=== PATIENT | male | born 1970 | race Caucasian/White ===

== ENCOUNTER 2020-06-16 08:32 | Inpatient (IN) | payer BC ==
[~2020-06-16] VITALS: Ht 175.3 cm; Wt 88.0 kg
[2020-06-16] MEDS ORDERED: LOSA50 PO (08:50)
[2020-06-16] MEDS ORDERED: TOPROL XL50 MG PO (08:50)
[2020-06-16] MEDS ORDERED: HYDCHL25 PO (08:50)
[2020-06-16] MEDS ORDERED: OMEP20ER PO (08:51)
[2020-06-16 09:27] LABS: BASOPHILS ABSOLUTE AUTO 0.06 K/mm3 (0.00-0.23); BASOPHILS PERCENT AUTO 0 % (0-2); EOSINOPHILS ABSOLUTE AUTO 0.12 K/mm3 (0.00-0.68); EOSINOPHILS PERCENT AUTO 1 % (0-6); Hematocrit 42.3 % (37.0-53.0); Hemoglobin 14.7 g/dL (13.5-17.5); IMMATURE GRAN ABSOLUTE AUTO 0.07 K/mm3 (0.00-0.10); IMMATURE GRAN PERCENT AUTO 0 % (0-1); LYMPHOCYTES ABSOLUTE AUTO 2.24 K/mm3 (0.84-5.20); LYMPHOCYTES PERCENT AUTO 14 % (21-46); MONOCYTES ABSOLUTE AUTO 1.84 K/mm3 (0.16-1.47); MONOCYTES PERCENT AUTO 11 % (4-13); Mean Corpuscular HGB 31.6 pg (26.0-34.0); Mean Corpuscular HGB Conc 34.8 g/dL (31.5-36.5); Mean Corpuscular Volume 91 fL (80-100); Mean Platelet Volume 10.4 fL (9.1-12.4); NEUTROPHILS ABSOLUTE AUTO 11.95 K/mm3 (1.96-9.15); NEUTROPHILS PERCENT AUTO 73 % (41-73); Platelet Count 314 K/mm3 (150-400); RDW Coefficient Variation 11.7 % (11.7-14.2); RDW Standard Deviation 38.8 fL (35.1-46.3); Red Blood Cell Count 4.65 M/mm3 (4.30-5.90); White Blood Cell Count 16.28 K/mm3 (4.00-11.30)
[2020-06-16 10:00] LABS: Source, Urine Clean Catch
[2020-06-16 10:00] LABS: Alanine Aminotransfer (ALT/SGP 36 U/L (12-78); Albumin/Globulin Ratio 0.6 (0.8-1.8); Alk Phos 99 U/L (50-136); Anion Gap 4 mmol/L (6-16); Aspartate Aminotrans (AST/SGOT 25 U/L (12-37); Bilirubin, Total 0.7 mg/dL (0.1-1.0); Blood Urea Nitrogen 14 mg/dL (8-24); Bun/Creatinine Ratio 15.8 (12.0-20.0); CO2, Blood 35 mmol/L (21-32); Calcium, Blood 9.2 mg/dL (8.5-10.1); Chloride, Blood 102 mmol/L (98-108); Creatinine, Blood 0.89 mg/dL (0.60-1.20); Globulin, Blood 4.9 g/dL (2.2-4.0); Glomerular Filtration Rate >60 (60-); Glucose, Blood 116 mg/dL (70-99); Potassium, Blood 3.1 mmol/L (3.5-5.5); Sodium, Blood 141 mmol/L (136-145); Total Protein, Blood 7.9 g/dL (6.4-8.2)
[2020-06-16 10:10] LABS: Appearance, Urine Clear (Clear); Bilirubin, Urine Neg (Neg); Blood, Urine 1+ (Neg); Color, Urine Yellow (P-Yellow); Glucose Qualitative, Urine Neg (Neg); Ketones, Urine Neg (Neg); Leukocyte Esterase, Urine Neg (Neg); Nitrite, Urine Neg (Neg); Protein, Urine Neg (Neg); Urobilinogen, Urine NORM (Normal)
[2020-06-16 10:20] LABS: Bacteria Few /hpf; Red Blood Cells, Urine 0-2 /hpf (0-2); Squamous Epithelial Cells Rare /hpf (Few); White Blood Cells, Urine Rare /hpf (0-5)
--- NOTE | 2020-06-16 18:36 | NUR ---
SHIFT SUMMARY SINCE ARRIVAL TO UNIT @ 1317. PT HAS BEEN PLEASANT, COOPERATIVE, & IND. ABD PAIN BETTER RELIEVED W/ DILAUDID & TORADOL. ABD SOFT & TOLERATING ICE CHIPS WELL. DENIES NAUSEA.
[2020-06-17 05:17] LABS: BASOPHILS ABSOLUTE AUTO 0.05 K/mm3 (0.00-0.23); BASOPHILS PERCENT AUTO 0 % (0-2); EOSINOPHILS ABSOLUTE AUTO 0.09 K/mm3 (0.00-0.68); EOSINOPHILS PERCENT AUTO 1 % (0-6); Hematocrit 38.2 % (37.0-53.0); IMMATURE GRAN ABSOLUTE AUTO 0.08 K/mm3 (0.00-0.10); IMMATURE GRAN PERCENT AUTO 1 % (0-1); LYMPHOCYTES ABSOLUTE AUTO 2.29 K/mm3 (0.84-5.20); LYMPHOCYTES PERCENT AUTO 14 % (21-46); MONOCYTES ABSOLUTE AUTO 2.07 K/mm3 (0.16-1.47); MONOCYTES PERCENT AUTO 13 % (4-13); Mean Corpuscular HGB 31.6 pg (26.0-34.0); Mean Corpuscular Volume 93 fL (80-100); Mean Platelet Volume 10.7 fL (9.1-12.4); NEUTROPHILS ABSOLUTE AUTO 11.33 K/mm3 (1.96-9.15); NEUTROPHILS PERCENT AUTO 71 % (41-73); Platelet Count 307 K/mm3 (150-400); RDW Coefficient Variation 11.7 % (11.7-14.2); RDW Standard Deviation 39.7 fL (35.1-46.3); Red Blood Cell Count 4.12 M/mm3 (4.30-5.90); White Blood Cell Count 15.91 K/mm3 (4.00-11.30)
--- NOTE | 2020-06-17 05:43 | NUR ---
PT VSS; T-MAX 100.7, RESOLVED W/NON PHARM INTERVENTION. ABD REMAINS FIRM/DISTENDED, TENDER IN LLQ. BT ACTIVE, PT HAVING LOOSE BM. PT REP MILD NAUSEA, NO EMESIS, ZOFRAN GIVEN W/REP RELIEF. PAIN MGD W/TORADOL AND 0.5MG IV DILAUDID. PT NPO PER ORDERS, IVF AND ABX CONT. PT REP HAVING SLEPT WELL FOR SEVERAL HRS DURING NIGHT. PT UP INDEP IN ROOM, CICI WELL.
[2020-06-17 05:59] LABS: Anion Gap 6 mmol/L (6-16); Blood Urea Nitrogen 15 mg/dL (8-24); CO2, Blood 31 mmol/L (21-32); Calcium, Blood 8.9 mg/dL (8.5-10.1); Chloride, Blood 106 mmol/L (98-108); Glomerular Filtration Rate >60 (60-); Glucose, Blood 74 mg/dL (70-99); Potassium, Blood 3.6 mmol/L (3.5-5.5); Sodium, Blood 143 mmol/L (136-145)
--- NOTE | 2020-06-17 18:36 | NUR ---
SHIFT SUMMARY PT'S PAIN HAS IMPROVED; SWITCHED TO PO PAIN MEDS. PASSING GAS & x 2 LOOSE BM's. ABD MORE DISTENDED THAN YESTERDAY BUT SOFT. DENIES N/V AFTER ADVANCING TO CLEAR LQS.
--- NOTE | 2020-06-17 19:35 | NUR ---
ASSUMED CARE OF PT AT THIS TIME. PT IN BED, SPOUSE AT BEDSIDE. PT STATES PAIN IS TOLERABLE AT THIS TIME, JUST SLIGHT LI BUT DENIES NEED FOR INTERVENTION AT THIS TIME. STATES HAVING EPISODES OF NAUSEA ON/OFF TODAY BUT NO VOMITING, DENIES NAUSEA AT THIS TIME. BT + HAD 3 EPISODES OF LOOSE STOOLS TODAY. VSS AFEBRILE. CALL LIGHT IS IN REACH.
--- NOTE | 2020-06-17 23:54 | NUR ---
PT WINCING IN PAIN. STATES PAIN IN LOWER ABD 10/13. PT WAS MEDICATED FOR ABD PAIN WITH DILAUDID/TORADOL AND TYLENOL FOR LI. PT WAS PRE-MEDICATED WITH ZOFRAN TO PREVENT NAUSEA DUE TO DILAUDID. IV ABX STARTED. AFEBRILE. PT NOW RESTING COMFORTABLY.
--- NOTE | 2020-06-18 05:34 | NUR ---
HAS DONE WELL DURING NIGHT. STILL HAVING ABD PAIN WITH BLOAT MANAGED WITH DILAUDID. ALSO C/O LI MANAGED WITH TYLENOL. NO MORE LOOSE STOOLS. LOW GRADE TEMP THIS MORNING. LABS STILL PENDING. PLAN FOR REPEAT CT THIS AM. CONT IV ABX.
[2020-06-18 05:45] LABS: BASOPHILS ABSOLUTE AUTO 0.06 K/mm3 (0.00-0.23); BASOPHILS PERCENT AUTO 0 % (0-2); EOSINOPHILS ABSOLUTE AUTO 0.11 K/mm3 (0.00-0.68); EOSINOPHILS PERCENT AUTO 1 % (0-6); Hematocrit 39.7 % (37.0-53.0); Hemoglobin 13.2 g/dL (13.5-17.5); IMMATURE GRAN ABSOLUTE AUTO 0.09 K/mm3 (0.00-0.10); IMMATURE GRAN PERCENT AUTO 1 % (0-1); LYMPHOCYTES ABSOLUTE AUTO 2.24 K/mm3 (0.84-5.20); LYMPHOCYTES PERCENT AUTO 12 % (21-46); MONOCYTES ABSOLUTE AUTO 2.42 K/mm3 (0.16-1.47); MONOCYTES PERCENT AUTO 13 % (4-13); Mean Corpuscular HGB Conc 33.2 g/dL (31.5-36.5); Mean Corpuscular Volume 93 fL (80-100); Mean Platelet Volume 10.3 fL (9.1-12.4); NEUTROPHILS ABSOLUTE AUTO 14.08 K/mm3 (1.96-9.15); NEUTROPHILS PERCENT AUTO 74 % (41-73); Platelet Count 346 K/mm3 (150-400); RDW Coefficient Variation 11.8 % (11.7-14.2); RDW Standard Deviation 40.4 fL (35.1-46.3); Red Blood Cell Count 4.26 M/mm3 (4.30-5.90)
--- NOTE | 2020-06-18 06:42 | NUR ---
WBC ELEVATED TO 19. PT STILL NOT TAKING IN SUFFICIENT PO, CALLED DR MARTINEZ AND OBTAINED ORDER TO RESTART IVF.
--- NOTE | 2020-06-18 18:36 | NUR ---
SHIFT SUMMARY PT CONTINUES TO BE FEBRILE T/O SHIFT, TMAX 101.8, MEDICATED WITH TYLENOL AND IBUPROFEN. LLQ PAIN INCREASED THIS AFTERNOON, MEDICATED WITH 0.5 DILAUDID IVP WITH NO RELIEF SO MEDICATED WITH ANOTHER 0.5-PT REPORTS PAIN 4/10 AFTER 2ND DOSE. PT REPORTS THAT HE HAS BEEN VOIDING FREQUENTLY, BUT NO MEASURED VOIDS. EDUCATED ON NEED TO MEASURE URINE OUTPUT, PT VERBALIZED UNDERSTANDING. POOR PO INTAKE T/O SHIFT, LR @ 125/HR. PLAN TO CONTINUE IV ABX AT THIS TIME.
[2020-06-19 04:31] LABS: BASOPHILS ABSOLUTE AUTO 0.05 K/mm3 (0.00-0.23); BASOPHILS PERCENT AUTO 0 % (0-2); EOSINOPHILS ABSOLUTE AUTO 0.16 K/mm3 (0.00-0.68); EOSINOPHILS PERCENT AUTO 1 % (0-6); Hematocrit 36.1 % (37.0-53.0); Hemoglobin 12.1 g/dL (13.5-17.5); IMMATURE GRAN ABSOLUTE AUTO 0.06 K/mm3 (0.00-0.10); IMMATURE GRAN PERCENT AUTO 0 % (0-1); LYMPHOCYTES ABSOLUTE AUTO 1.97 K/mm3 (0.84-5.20); LYMPHOCYTES PERCENT AUTO 12 % (21-46); MONOCYTES ABSOLUTE AUTO 1.82 K/mm3 (0.16-1.47); MONOCYTES PERCENT AUTO 12 % (4-13); Mean Corpuscular HGB 30.8 pg (26.0-34.0); Mean Corpuscular HGB Conc 33.5 g/dL (31.5-36.5); Mean Corpuscular Volume 92 fL (80-100); Mean Platelet Volume 10.3 fL (9.1-12.4); NEUTROPHILS ABSOLUTE AUTO 11.78 K/mm3 (1.96-9.15); NEUTROPHILS PERCENT AUTO 74 % (41-73); Platelet Count 323 K/mm3 (150-400); RDW Coefficient Variation 11.8 % (11.7-14.2); Red Blood Cell Count 3.93 M/mm3 (4.30-5.90); White Blood Cell Count 15.84 K/mm3 (4.00-11.30)
[2020-06-19 04:53] LABS: Anion Gap 3 mmol/L (6-16); Blood Urea Nitrogen 7 mg/dL (8-24); Bun/Creatinine Ratio 6.9 (12.0-20.0); CO2, Blood 36 mmol/L (21-32); Calcium, Blood 9.1 mg/dL (8.5-10.1); Chloride, Blood 102 mmol/L (98-108); Creatinine, Blood 1.02 mg/dL (0.60-1.20); Glomerular Filtration Rate >60 (60-); Glucose, Blood 113 mg/dL (70-99); Potassium, Blood 3.5 mmol/L (3.5-5.5); Sodium, Blood 141 mmol/L (136-145)
--- NOTE | 2020-06-19 07:53 | NUR ---
SHIFT SUMMARY PT RESTED WELL T/O NIGHT. AAOX4. DISCOMFORT CONTROLLED WITH 1MG IV DILAUDID X3 THIS SHIFT. NO NAUSEA/EMESIS. VALIUM X2 THIS SHIFT FOR INSOMNIA. TMAX OF 101.1, DECREASED WITH PO TYLENOL. PT INDEPENDENT IN ROOM. GOOD PO INTAKE + OUTPUT. IVF + ABX PER ORDERS. NO ACUTE CHANGES OVER NIGHT. PT CURRENTLY RESTING IN BED WITH CALL LIGHT IN REACH.
--- NOTE | 2020-06-19 17:09 | NUR ---
SHIFT SUMMARY PT A/O X4. IND IN RM. TOLERATING CLEAR LIQ DIET. PAIN MANAGED PER EMAR. TEMP ELEVATED THROUGHOUT SHIFT, TMAX 101.1 TREATED WITH TYLENOL PER EMAR. VITALS OTHERWISE STABLE W/EXCEPTION OF HTN TO BASELINE. PLAN TO CONTINUE IV FLUIDS AND ANTIBIOTICS PER ON AIR ANNOUNCER ORDER. WILL REPEAT LABS IN AM. CALL LIGHT IN REACH, WILL REPORT TO ONCOMING RN.
[2020-06-20 04:49] LABS: BASOPHILS ABSOLUTE AUTO 0.04 K/mm3 (0.00-0.23); BASOPHILS PERCENT AUTO 0 % (0-2); EOSINOPHILS ABSOLUTE AUTO 0.16 K/mm3 (0.00-0.68); EOSINOPHILS PERCENT AUTO 1 % (0-6); Hematocrit 36.3 % (37.0-53.0); Hemoglobin 12.3 g/dL (13.5-17.5); IMMATURE GRAN ABSOLUTE AUTO 0.05 K/mm3 (0.00-0.10); IMMATURE GRAN PERCENT AUTO 0 % (0-1); LYMPHOCYTES ABSOLUTE AUTO 1.74 K/mm3 (0.84-5.20); LYMPHOCYTES PERCENT AUTO 12 % (21-46); MONOCYTES ABSOLUTE AUTO 1.52 K/mm3 (0.16-1.47); MONOCYTES PERCENT AUTO 10 % (4-13); Mean Corpuscular HGB 31.2 pg (26.0-34.0); Mean Corpuscular HGB Conc 33.9 g/dL (31.5-36.5); Mean Corpuscular Volume 92 fL (80-100); Mean Platelet Volume 10.2 fL (9.1-12.4); NEUTROPHILS ABSOLUTE AUTO 11.19 K/mm3 (1.96-9.15); NEUTROPHILS PERCENT AUTO 76 % (41-73); Platelet Count 346 K/mm3 (150-400); RDW Coefficient Variation 11.9 % (11.7-14.2); RDW Standard Deviation 40.2 fL (35.1-46.3); Red Blood Cell Count 3.94 M/mm3 (4.30-5.90)
[2020-06-20 05:13] LABS: Anion Gap 6 mmol/L (6-16); Blood Urea Nitrogen 6 mg/dL (8-24); Bun/Creatinine Ratio 6.7 (12.0-20.0); CO2, Blood 33 mmol/L (21-32); Calcium, Blood 8.9 mg/dL (8.5-10.1); Chloride, Blood 103 mmol/L (98-108); Glomerular Filtration Rate >60 (60-); Glucose, Blood 99 mg/dL (70-99); Potassium, Blood 3.1 mmol/L (3.5-5.5); Sodium, Blood 142 mmol/L (136-145)
--- NOTE | 2020-06-20 06:49 | NUR ---
SHIFT SUMMARY: NO SIGNIFICANT CHANGES THIS SHIFT. TMAX TEMP OF 101.6. ALL OTHER VS WNL. TEMPS TREATED WITH TYLENOL AND IBURPROFEN. PT RESPONDING WELL TO MEDICATIONS. PT CONTINUES TO COMPLAIN OF A CRAMPING PAIN IN LLQ ABD. PAIN BEING MANAGED WITH NORCO AND 1MG DILAUDID PER EMAR. PT TOLERATING CLEAR LIQ DIET. DENIES N/V THROUGHOUT SHIFT. PT VOIDING WELL. INDEPENDENT IN ROOM. AT BEDSIDE.
--- NOTE | 2020-06-20 12:01 | NUR ---
REPORT PASSED TO JOSÉ LUIS RIOS
--- NOTE | 2020-06-20 13:14 | NUR ---
ASSUMED CARE OF PATIENT AT THIS TIME.
--- NOTE | 2020-06-20 17:52 | NUR ---
PT HAS BEEN STABLE SINCE THIS RN HAS ASSUMED CARE. VSS. NO FEVERS THIS SHIFT. PT UP INDEP IN ROOM. VOIDING WELL. PT HAS HAD SEVERAL SMALL LOOSE BM'S. HYPERACTIVE BT'S. + FLATUS. NO COMPLAINTS OF NAUSEA. PAIN IN ABDOMEN CONTROLLED WITH NORCO PRN. CONT ABX AND NYSTATING FOR THRUSH. NO COMPLAINTS OF THROAT OR MOUTH PAIN. DIET ADVANCED FROM CLEARS TO FULL LIQUID, CICI WELL. CONT IV FLUIDS. CALLS APPROPRIATELY NEEDED.
[2020-06-21 04:30] LABS: BASOPHILS ABSOLUTE AUTO 0.07 K/mm3 (0.00-0.23); BASOPHILS PERCENT AUTO 1 % (0-2); EOSINOPHILS ABSOLUTE AUTO 0.22 K/mm3 (0.00-0.68); EOSINOPHILS PERCENT AUTO 1 % (0-6); Hematocrit 37.6 % (37.0-53.0); Hemoglobin 12.6 g/dL (13.5-17.5); IMMATURE GRAN ABSOLUTE AUTO 0.08 K/mm3 (0.00-0.10); IMMATURE GRAN PERCENT AUTO 1 % (0-1); LYMPHOCYTES ABSOLUTE AUTO 2.31 K/mm3 (0.84-5.20); LYMPHOCYTES PERCENT AUTO 15 % (21-46); MONOCYTES ABSOLUTE AUTO 1.76 K/mm3 (0.16-1.47); MONOCYTES PERCENT AUTO 11 % (4-13); Mean Corpuscular HGB 30.8 pg (26.0-34.0); Mean Corpuscular HGB Conc 33.5 g/dL (31.5-36.5); Mean Corpuscular Volume 92 fL (80-100); Mean Platelet Volume 10.4 fL (9.1-12.4); NEUTROPHILS ABSOLUTE AUTO 11.11 K/mm3 (1.96-9.15); NEUTROPHILS PERCENT AUTO 71 % (41-73); Platelet Count 401 K/mm3 (150-400); RDW Coefficient Variation 11.9 % (11.7-14.2); RDW Standard Deviation 40.2 fL (35.1-46.3); Red Blood Cell Count 4.09 M/mm3 (4.30-5.90); White Blood Cell Count 15.55 K/mm3 (4.00-11.30)
--- NOTE | 2020-06-21 06:47 | NUR ---
PT AFEBRILE T/O NIGHT; VSS. NO CHANGES IN ABD DISTENTION. PT HAD NO C/O N/V, REP LOOSE BM X4. PAIN MGD W/2 NORCO W/REP RELIEF. PT DRINKING PO FLUIDS, HAD MULTIPLE UNMEASURED VOIDS. PT ABLE TO SLEEP FOR SEVERAL HRS AFTER VALIUM GIVEN. ABX CONT PER ORDERS.
--- NOTE | 2020-06-21 18:49 | NUR ---
SUMMARY: PT IS A/O, VSS, INDEP IN ROOM. NO ACUTE CHANGE TODAY. ABD IS MILDLY DISTENDED, PT REPORTS FLATUS AND X4 BM'S TODAY. TOLERATING FULL LIQ DIET. CONTINUING ABX. NO SAFETY CONCERNS AT THIS TIME.
[2020-06-22 03:53] LABS: BASOPHILS ABSOLUTE AUTO 0.09 K/mm3 (0.00-0.23); BASOPHILS PERCENT AUTO 1 % (0-2); EOSINOPHILS ABSOLUTE AUTO 0.28 K/mm3 (0.00-0.68); EOSINOPHILS PERCENT AUTO 2 % (0-6); Hematocrit 39.1 % (37.0-53.0); Hemoglobin 12.9 g/dL (13.5-17.5); IMMATURE GRAN ABSOLUTE AUTO 0.17 K/mm3 (0.00-0.10); IMMATURE GRAN PERCENT AUTO 1 % (0-1); LYMPHOCYTES ABSOLUTE AUTO 2.62 K/mm3 (0.84-5.20); LYMPHOCYTES PERCENT AUTO 14 % (21-46); MONOCYTES ABSOLUTE AUTO 2.13 K/mm3 (0.16-1.47); MONOCYTES PERCENT AUTO 11 % (4-13); Mean Corpuscular HGB 30.6 pg (26.0-34.0); Mean Corpuscular Volume 93 fL (80-100); Mean Platelet Volume 10.3 fL (9.1-12.4); NEUTROPHILS ABSOLUTE AUTO 13.54 K/mm3 (1.96-9.15); NEUTROPHILS PERCENT AUTO 72 % (41-73); Platelet Count 442 K/mm3 (150-400); RDW Coefficient Variation 11.9 % (11.7-14.2); Red Blood Cell Count 4.22 M/mm3 (4.30-5.90); White Blood Cell Count 18.83 K/mm3 (4.00-11.30)
--- NOTE | 2020-06-22 06:35 | NUR ---
PT VSS, AFEBRILE T/O NIGHT. PT REP "FEELING GOOD" PAIN MGD W/2 NORCO W/REP RELIEF. NO CHANGES IN ABD DISTENTION, BT HYPERACTIVE, PT PASSING FLATUS AND LIQ BM. PT HAD NO C/O N/V. PT ABLE TO SLEEP FOR APPX 3 HRS AFTER VALIUM GIVEN. PT AMB INDEP IN ROOM, CICI WELL. IV ABX CONT PER ORDERS.
--- NOTE | 2020-06-22 07:32 | NUR ---
TEMP: PT CALLED REQ TO HAVE TEMP TAKEN. PT SHIVERING IN ROOM, TEMP 103.0 ORALLY. ROOM TEMP REDUCED, PT MEDICATED W/IBUPROFEN AND 2 NORCO. DAY RN IN ROOM FOR BEDSIDE REPORT.
--- NOTE | 2020-06-22 18:00 | NUR ---
SHIFT SUMMARY PT IS DOING WELL. EATING, DRINKING, VOIDING, & HAVING LOOSE BM's. AMBULATING FREQ. IV ABX SCHEDULED.
--- NOTE | 2020-06-23 03:37 | NUR ---
SHIFT SUMMARY PT IS A/O X4, IND IN ROOM. TOLERATING FULL LIQUID DIET W/O NAUESA OR EMESIS. PT REPORTS HAVING LOOSE/LIQUID BM'S AND IS VOIDING. BT HYPERACTIVE THIS SHIFT. PAIN MANAGED WITH NORCO X2 PRN. NO ACUTE CHANGES OVERNIGHT. PT IS RESTING IN BED WITH CALL LIGHT IN REACH.
[2020-06-23 04:31] LABS: BASOPHILS ABSOLUTE AUTO 0.08 K/mm3 (0.00-0.23); BASOPHILS PERCENT AUTO 1 % (0-2); EOSINOPHILS ABSOLUTE AUTO 0.26 K/mm3 (0.00-0.68); EOSINOPHILS PERCENT AUTO 2 % (0-6); Hematocrit 36.9 % (37.0-53.0); Hemoglobin 12.3 g/dL (13.5-17.5); IMMATURE GRAN PERCENT AUTO 1 % (0-1); LYMPHOCYTES PERCENT AUTO 13 % (21-46); MONOCYTES ABSOLUTE AUTO 2.08 K/mm3 (0.16-1.47); MONOCYTES PERCENT AUTO 13 % (4-13); Mean Corpuscular HGB Conc 33.3 g/dL (31.5-36.5); Mean Corpuscular Volume 93 fL (80-100); Mean Platelet Volume 10.4 fL (9.1-12.4); NEUTROPHILS PERCENT AUTO 71 % (41-73); Platelet Count 443 K/mm3 (150-400); RDW Coefficient Variation 12.1 % (11.7-14.2); RDW Standard Deviation 41.7 fL (35.1-46.3); Red Blood Cell Count 3.97 M/mm3 (4.30-5.90); White Blood Cell Count 16.12 K/mm3 (4.00-11.30)
[2020-06-23] MEDS ORDERED: Norco 5-325 Ta1 EACH PO (08:15)
[2020-06-23] MEDS ORDERED: PROBIOTIC1 EA13 PO (08:16)
[2020-06-23] MEDS ORDERED: AMOCLA875 PO (08:17)
--- NOTE | 2020-06-23 09:55 | NUR ---
DISCHARGE PT VERY EXCITED FOR D/C. SCRIPTS GIVEN. EATING, DRINKING, VOIDING & STILL HAVING LOOSE BM's. AMBULATES OUT W/ SPECIAL DELIVERY MESSENGER @ SIDE. IMPORTANCE OF MONITORING TEMPERATURES STRESSED.
[2020-06-24] MEDS ORDERED: IBUP200 PO (15:47)
== END 2020-06-23 09:19 | disposition home or self-care (01) | DRG 392 ==
LOC: ER 08:32 → SURS 08:33
PROVIDERS: Emergency Medicine; Surgery; ADMIT Surgery
DX: K57.20 Diverticulitis of large intestine with perforation and abscess without bleeding (principal); I10 Essential (primary) hypertension; K21.9 Gastro-esophageal reflux disease without esophagitis; Z88.5 Allergy status to narcotic agent
CPT/HCPCS: 36415; 74177; 80048; 80053; 81001; 83690; 85025; 96374; 96375; 96376; 99285-25; A9270; A9270-GY; G0378; J1170; J1885; J2405; J2543; J3010; J7030; J7120; Q9967

== ENCOUNTER 2020-06-24 15:13 | Inpatient (IN) | payer BC ==
[~2020-06-24] VITALS: Ht 175.3 cm; Wt 80.5 kg
[~2020-06-24 15:13] MED LIST: AMOCLA875 PO; HYDCHL25 PO; LOSA50 PO; Norco 5-325 Ta1 EACH PO; OMEP20ER PO; PROBIOTIC1 EA13 PO; TOPROL XL50 MG PO
[2020-06-24] MEDS ORDERED: IBUP200 PO (15:47)
--- NOTE | 2020-06-24 16:11 | NUR ---
DIRECT ADMIT PT ARRIVES TO ROOM. DIAPHORETIC & SHORT OF BREATH. REPORTS HAVING FEVERS AT HOME HIGHEST BEING 101.9. AFTER TAKING 2 NORCO's & 600 MG IBU, FEVER CONTINUED. REPORTS ABD PAIN MILD IN LOWER QUADRANTS. CONT'S TO HAVE DIARHHEA BUT NO N/V. POWERGLIDE PLACED & LABS SENT. LR BOLUS STARTED.
[2020-06-24 16:18] LABS: BASOPHILS ABSOLUTE AUTO 0.08 K/mm3 (0.00-0.23); BASOPHILS PERCENT AUTO 0 % (0-2); EOSINOPHILS ABSOLUTE AUTO 0.26 K/mm3 (0.00-0.68); EOSINOPHILS PERCENT AUTO 1 % (0-6); Hematocrit 37.2 % (37.0-53.0); Hemoglobin 12.5 g/dL (13.5-17.5); IMMATURE GRAN ABSOLUTE AUTO 0.27 K/mm3 (0.00-0.10); IMMATURE GRAN PERCENT AUTO 1 % (0-1); LYMPHOCYTES ABSOLUTE AUTO 2.18 K/mm3 (0.84-5.20); LYMPHOCYTES PERCENT AUTO 11 % (21-46); MONOCYTES ABSOLUTE AUTO 2.09 K/mm3 (0.16-1.47); MONOCYTES PERCENT AUTO 11 % (4-13); Mean Corpuscular HGB 30.8 pg (26.0-34.0); Mean Corpuscular HGB Conc 33.6 g/dL (31.5-36.5); Mean Corpuscular Volume 92 fL (80-100); Mean Platelet Volume 10.3 fL (9.1-12.4); NEUTROPHILS PERCENT AUTO 75 % (41-73); Platelet Count 519 K/mm3 (150-400); RDW Coefficient Variation 12.1 % (11.7-14.2); RDW Standard Deviation 41.1 fL (35.1-46.3); Red Blood Cell Count 4.06 M/mm3 (4.30-5.90); White Blood Cell Count 19.88 K/mm3 (4.00-11.30)
[2020-06-24 16:23] LABS: Anion Gap 6 mmol/L (6-16); Blood Urea Nitrogen 15 mg/dL (8-24); Bun/Creatinine Ratio 14.3 (12.0-20.0); CO2, Blood 31 mmol/L (21-32); Calcium, Blood 9.3 mg/dL (8.5-10.1); Chloride, Blood 101 mmol/L (98-108); Creatinine, Blood 1.05 mg/dL (0.60-1.20); Glomerular Filtration Rate >60 (60-); Glucose, Blood 155 mg/dL (70-99); Potassium, Blood 3.5 mmol/L (3.5-5.5); Sodium, Blood 138 mmol/L (136-145)
[2020-06-25 03:56] LABS: BASOPHILS ABSOLUTE AUTO 0.06 K/mm3 (0.00-0.23); BASOPHILS PERCENT AUTO 0 % (0-2); EOSINOPHILS ABSOLUTE AUTO 0.32 K/mm3 (0.00-0.68); EOSINOPHILS PERCENT AUTO 2 % (0-6); Hematocrit 34.4 % (37.0-53.0); Hemoglobin 11.5 g/dL (13.5-17.5); IMMATURE GRAN ABSOLUTE AUTO 0.26 K/mm3 (0.00-0.10); IMMATURE GRAN PERCENT AUTO 2 % (0-1); LYMPHOCYTES PERCENT AUTO 13 % (21-46); MONOCYTES ABSOLUTE AUTO 1.76 K/mm3 (0.16-1.47); MONOCYTES PERCENT AUTO 11 % (4-13); Mean Corpuscular HGB 31.1 pg (26.0-34.0); Mean Corpuscular HGB Conc 33.4 g/dL (31.5-36.5); Mean Corpuscular Volume 93 fL (80-100); NEUTROPHILS ABSOLUTE AUTO 12.07 K/mm3 (1.96-9.15); NEUTROPHILS PERCENT AUTO 73 % (41-73); Platelet Count 473 K/mm3 (150-400); RDW Standard Deviation 41.5 fL (35.1-46.3); White Blood Cell Count 16.57 K/mm3 (4.00-11.30)
[2020-06-25 04:16] LABS: Anion Gap 3 mmol/L (6-16); Blood Urea Nitrogen 14 mg/dL (8-24); Bun/Creatinine Ratio 16.2 (12.0-20.0); CO2, Blood 32 mmol/L (21-32); Calcium, Blood 8.8 mg/dL (8.5-10.1); Chloride, Blood 105 mmol/L (98-108); Creatinine, Blood 0.87 mg/dL (0.60-1.20); Glomerular Filtration Rate >60 (60-); Glucose, Blood 102 mg/dL (70-99); Potassium, Blood 3.9 mmol/L (3.5-5.5); Sodium, Blood 140 mmol/L (136-145)
--- NOTE | 2020-06-25 07:35 | NUR ---
DR MARTINEZ IN TO SEE PT.
--- NOTE | 2020-06-25 07:39 | NUR ---
PT AFEBRILE T/O NIGHT; VSS. PT REP PAIN CICI W/PRN MEDS. PT CICI CL PO, ABD MOD DISTENDED, BT HYPERACTIVE, PT CONT TO HAVE LOOSE STOOL, NO C/O N/V. IVF AND ABX CONT PER ORDERS. PT UP INDEP IN ROOM, WAS AWAKE FOR MOST OF NIGHT, IN ROOM. DR MARTINEZ IN TO SEE PT THIS AM, PLAN FOR GOLYTLEY TODAY. BEDSIDE REPORT GIVEN TO FLORIDALMA Jo RN.
--- NOTE | 2020-06-25 17:27 | NUR ---
SUMMARY NO ACUTE CHANGES T/O SHIFT. MEDICATED PER ORDERS FOR PAIN. PT COMPLETED GOLYTELY. BMS CLEAR YELLOW W/NO SEDIMENT NOTED. TOLERATING CLEAR LIQUIDS. INDEPENDENT IN ROOM. SHOWERING AT THIS TIME. SPOUSE AT BEDSIDE.
[2020-06-25 19:42] LABS: Influenza A, PCR NEGATIVE (NEGATIVE); Influenza B, PCR NEGATIVE (NEGATIVE); Resp Syncytial Virus, PCR NEGATIVE (NEGATIVE); SARS-Cov-2 (COVID-19) PCR, MMC NEGATIVE (NEGATIVE)
--- NOTE | 2020-06-25 22:30 | NUR ---
HEADACHE/NAUSEA PT REP ONGOING HEADACHE W/NEW ONSET NAUSEA. PT MEDICATED PER EMAR, ICE PACK PROVIDED.
--- NOTE | 2020-06-25 23:42 | NUR ---
PT WAS ABLE TO SLEEP FOR SHORT TIME. PT AWOKE STATING "I FEEL A LOT BETTER" PT DECLINES NEEDS AT THIS TIME, IS ATTEMPTING TO GO BACK TO SLEEP.
[2020-06-26 05:24] LABS: BASOPHILS ABSOLUTE AUTO 0.05 K/mm3 (0.00-0.23); BASOPHILS PERCENT AUTO 0 % (0-2); EOSINOPHILS ABSOLUTE AUTO 0.11 K/mm3 (0.00-0.68); EOSINOPHILS PERCENT AUTO 1 % (0-6); Hematocrit 36.6 % (37.0-53.0); IMMATURE GRAN ABSOLUTE AUTO 0.21 K/mm3 (0.00-0.10); IMMATURE GRAN PERCENT AUTO 2 % (0-1); LYMPHOCYTES ABSOLUTE AUTO 2.04 K/mm3 (0.84-5.20); LYMPHOCYTES PERCENT AUTO 15 % (21-46); MONOCYTES ABSOLUTE AUTO 1.34 K/mm3 (0.16-1.47); MONOCYTES PERCENT AUTO 10 % (4-13); Mean Corpuscular HGB 30.5 pg (26.0-34.0); Mean Corpuscular HGB Conc 32.8 g/dL (31.5-36.5); Mean Corpuscular Volume 93 fL (80-100); Mean Platelet Volume 9.9 fL (9.1-12.4); NEUTROPHILS ABSOLUTE AUTO 10.06 K/mm3 (1.96-9.15); NEUTROPHILS PERCENT AUTO 73 % (41-73); Platelet Count 497 K/mm3 (150-400); RDW Standard Deviation 41.4 fL (35.1-46.3); Red Blood Cell Count 3.93 M/mm3 (4.30-5.90); White Blood Cell Count 13.81 K/mm3 (4.00-11.30)
--- NOTE | 2020-06-26 05:47 | NUR ---
PT HAD ROUGH NIGHT, STRUGGLED W/HEADACHE AND NASUEA FOR SEVERAL HRS. WAS ABLE TO REST INFREQUENTLY. AWOKE FEELING BETTER THIS AM. PT MED FOR PAIN X2, NAUSEA X1, AND SLEEP X1; PT DECLINED ADDITIONAL MEDS R/T NOT FEELING WELL. PT HAD 2 CLEAR/YELLOW LIQ BM. PT NPO POST MIDNIGHT FOR PLAN FOR SURGERY THIS AM. PT HAD SHOWER W/CHLOR HEX WASH THIS AM. IN ROOM THIS AM. PLAN FOR SURGERY AT 0730.
[2020-06-26 06:03] LABS: Alanine Aminotransfer (ALT/SGP 11 U/L (12-78); Albumin, Blood 2.4 g/dL (3.4-5.0); Albumin/Globulin Ratio 0.5 (0.8-1.8); Alk Phos 60 U/L (50-136); Anion Gap 6 mmol/L (6-16); Aspartate Aminotrans (AST/SGOT 9 U/L (12-37); Bilirubin, Total 0.3 mg/dL (0.1-1.0); Blood Urea Nitrogen 10 mg/dL (8-24); CO2, Blood 31 mmol/L (21-32); Calcium, Blood 9.2 mg/dL (8.5-10.1); Chloride, Blood 106 mmol/L (98-108); Creatinine, Blood 0.91 mg/dL (0.60-1.20); Globulin, Blood 4.9 g/dL (2.2-4.0); Glomerular Filtration Rate >60 (60-); Glucose, Blood 101 mg/dL (70-99); Potassium, Blood 4.4 mmol/L (3.5-5.5); Sodium, Blood 143 mmol/L (136-145); Total Protein, Blood 7.3 g/dL (6.4-8.2)
--- NOTE | 2020-06-26 06:23 | NUR ---
PT TO DAY SURGERY W/ESTELLA Batista RN. IN ROOM AWAITING UPDATE.
--- NOTE | 2020-06-26 06:57 | NUR ---
PT TO SDS FROM 234. REPORTS NPO FOR DAYS. PICC TO R ARM, FLUSHES, + TKO. VOIDS APPROX 50 CC OF YELLOW URINE. EKG COMPLETED PER DR. PALMER REQUEST. History, Chart, Medications and Allergies reviewed before start of procedure. Lungs clear T/O to Auscultation. Patient reports completing Chlorhexadine shower X2 prior to admission to hospital.
--- NOTE | 2020-06-26 15:48 | NUR ---
SUMMARY OF EVENTS. PT EPIDURAL DID NOT WORK NOTED AFTER PATIENT STARTED WAKING AND HAD NO LEVEL OF DERMATONE TO REPORT. DR PALMER CAME AND BOLUSED PT IN EPIDURAL THAT DID NOT CHANGE PT PAIN OR DERMATONE LEVEL. IV PUSHES OF FENTANYL IMPROVED PT PAIN / RECIVED 350MCG OF IV FENTANYL. DR PALMER TOOK EPIDURAL OUT AT 1440. PT REQUESTED ANOTHER EPIDURAL INSTEAD OF NAIL ASSEMBLY MACHINE OPERATOR ORDERED BY DR MARTINEZ. WILL CONSULT LOG MANAGER ANESTHESIOLOGIST. FENT NAIL ASSEMBLY MACHINE OPERATOR STARTED PER ORDER. REPORT TO JEMMA MACIAS RN. DR MARTINEZ AWARE OF POSSIBLE D/C OF NAIL ASSEMBLY MACHINE OPERATOR IF EPIDURAL IS REPLACED.
--- NOTE | 2020-06-26 16:12 | NUR ---
DR MCNALLY ATTEMPTING EPIDURAL. BARREL RIFLER BUTTON OFF.
--- NOTE | 2020-06-26 17:22 | NUR ---
EGG GRADER SYRINGE WITH FENTANYL WASTED WITH KESHAWN HAAS 0681
--- NOTE | 2020-06-26 17:55 | NUR ---
SUMMARY ARRIVED FROM PACU VIA BED, AWAKE, A&O X3, DENIES ANY PAIN, EPIDURAL NOTED IN PLACE, AT BEDSIDE, DENIES ANY NAUSEA, ABD W/ MIDLINE JACOB DSG AND LOOP ILEOSTOMY ON R ABD, ICE CHIPS GIVEN, IS GIVEN, HR TACHY BUT STABLE, NO OTHER CHANGES THIS SHIFT.
--- NOTE | 2020-06-27 05:43 | NUR ---
PT AGREES TO ALLOW STUDENT TO PARTICIPATE IN CARE
--- NOTE | 2020-06-27 07:30 | NUR ---
SHIFT SUMMARY POD#1 LOOP ILEOSTOMY WITH OSTOMY. AAOX4. DISCOMFORT CONTROLLED WITH EPIDURAL USE + X1 PAIN PILLS WITH AM OMEPRAZOLE. NO NAUSEA/EMESIS. JACOB SECURE WITH SCANT AMOUNT SS DRAINAGE, NO INCREASE THIS SHIFT. ILEOSTOMY WITH 60cc SS OUT. PT UP TO DANGLE AT BEDSIDE + STAND. ON 2L VIA NC, ENCOURAGE DEEP BREATHING WITH ABD SPLINTING + INCENTIVE SPIROMETRY USE. AT BEDSIDE T/O NIGHT. REPORT TO DAY SHIFT RN AT BEDSIDE. PT CURRENTLY RESTING IN BED WITH CALL LIGHT + EPIDURAL BOLUS HANDLE IN REACH.
[2020-06-27 08:48] LABS: BASOPHILS ABSOLUTE AUTO 0.05 K/mm3 (0.00-0.23); BASOPHILS PERCENT AUTO 0 % (0-2); EOSINOPHILS PERCENT AUTO 0 % (0-6); Hematocrit 32.2 % (37.0-53.0); Hemoglobin 10.4 g/dL (13.5-17.5); IMMATURE GRAN ABSOLUTE AUTO 0.23 K/mm3 (0.00-0.10); IMMATURE GRAN PERCENT AUTO 1 % (0-1); LYMPHOCYTES ABSOLUTE AUTO 1.72 K/mm3 (0.84-5.20); LYMPHOCYTES PERCENT AUTO 7 % (21-46); MONOCYTES ABSOLUTE AUTO 1.84 K/mm3 (0.16-1.47); MONOCYTES PERCENT AUTO 8 % (4-13); Mean Corpuscular HGB 30.7 pg (26.0-34.0); Mean Corpuscular HGB Conc 32.3 g/dL (31.5-36.5); Mean Corpuscular Volume 95 fL (80-100); Mean Platelet Volume 10.5 fL (9.1-12.4); NEUTROPHILS ABSOLUTE AUTO 20.65 K/mm3 (1.96-9.15); NEUTROPHILS PERCENT AUTO 84 % (41-73); Platelet Count 505 K/mm3 (150-400); RDW Coefficient Variation 12.4 % (11.7-14.2); RDW Standard Deviation 43.4 fL (35.1-46.3); Red Blood Cell Count 3.39 M/mm3 (4.30-5.90); White Blood Cell Count 24.49 K/mm3 (4.00-11.30)
[2020-06-27 09:06] LABS: Anion Gap 0 mmol/L (6-16); Blood Urea Nitrogen 11 mg/dL (8-24); Bun/Creatinine Ratio 12.7 (12.0-20.0); CO2, Blood 30 mmol/L (21-32); Calcium, Blood 8.5 mg/dL (8.5-10.1); Chloride, Blood 111 mmol/L (98-108); Creatinine, Blood 0.87 mg/dL (0.60-1.20); Glomerular Filtration Rate >60 (60-); Glucose, Blood 137 mg/dL (70-99); Potassium, Blood 4.3 mmol/L (3.5-5.5); Sodium, Blood 141 mmol/L (136-145)
--- NOTE | 2020-06-27 13:00 | NUR ---
SPOKE WITH DR WOLF AT APPROX 0930 REGARDING PAIN. PT REPORTING PAIN OF 6/10 -8/10 WITH EPIDURAL. PT WAS REQUESTING OTHER MEDICATIONS ON TOP OF THE EPIDURAL. DR WOLF INTO SEE PATIENT, CHECKED EPIDURAL USING 5ML OF 2% LIDOCAINE PT STATED RELIEF. DOSE ADJUSTED TO 12ML/HR. PT STATES RELIEF AT THIS RATE. REPORTS PAIN OF /10. PT ON 2L OXYGEN, DESATS TO UPPER 8O'S WHEN REMOVING NC. PT EDUCATED ON KEEPING NC IN. PT CURRENTLY TAKING DEEP BREATHS AND COUGHING WHILE SPLINTING ABDOMEN, DENIES ANY SOB.
--- NOTE | 2020-06-27 13:10 | NUR ---
PT CURRENTLY PASSING FLATUS AND LIQUID STOOL FROM ILEOSTOMY. PT REPORTS RELIEF OF GAS PAINS WITH INCREASE IN FLATUS.
--- NOTE | 2020-06-27 17:42 | NUR ---
SHIFT SUMMARY POD 1 COLECTOMY WITH NEW ILEOSTOMY AA0X4, VSS. PAIN MANAGED SINCE EPIDURAL ADJUSTED. PT NEEDED IV TORODOL X 1 FOR BREAKTHROUGH GAS PAIN. PT HAS BEEN UP IN THE ROOM AND AMBULATED TO RESTROOM, NO WEAKNESS. REPORTS FULL SENSATION IN LEGS. NUMBNESS LOCATED T4-L1 UNCHANGED SINCE EPIDRUAL DOSE INCREASE. STOMA PINK AND BEEFY, APPLIANCE IS CDI. HAVING FLATUS AND LIQUID BROWN OUTPUT. PT REQUIRES 2L OXYGEN WHILE AT REST WILL DESAT TO MID 80'S BUT RECOVERS QUICKLY. MIDLINE PICCO COMPRESSED, DRY SS DRAINAGE ON DRESSING MARKED AT START OF SHIFT WITH MINIMAL CHANGE. PT TOLERATING CLEAR LQUIDS WELL. RAZA PATENT AND DRAINING. WILL CONTINUE TO MONITOR PAIN AND HAND OFF TO ONCOMING SHIFT.
--- NOTE | 2020-06-27 21:13 | NUR ---
PT AGREES TO ALLOW STUDENT TO PARTICIPATE IN CARE
--- NOTE | 2020-06-28 05:42 | NUR ---
SHIFT SUMMARY POD#2 LOOP ILEOSTOMY. AAOX4. DISCOMFORT CONTROLLED WITH EPIDURAL USE + X2 TORADOL FOR ACUTE DISCOMFORT. NAUSEA UPON AWAKENING THIS AM, DECREASED WITH X1 IV ZOFRAN + MOVEMENT PRODUCING FLATUS. ILEOSTOMY WITH 500cc LIQUID BROWN/GREEN OUT. TOLERATING SMALL AMOUNTS CLEARS T/O NIGHT. IVF + ABX PER ORDERS. PT REPOSITIONING SELF IN BED WELL. EPIDURAL INFUSING, INSERTION SITE C/D/I, WITH L4-T1 NUMBNESS T/O SHIFT. RAZA SECURE, PRODUCING 400cc DARK JOSE URINE. PT CONTINUES ON 2L VIA NC, CONTINUE TO ENCOURAGE DEEP BREATHING + COUGHING TOLERATED. AT BEDSIDE T/O NIGHT. PT CURRENTLY RESTING ON SIDE WITH CALL LIGHT IN REACH.
--- NOTE | 2020-06-28 10:05 | NUR ---
SPOKE WITH DR MCNALLY, PT WAS REPORTING FEELING "LOOPY" FROM EPIDURAL. ORDERS RECIEVED TO CHANGE RATE TO 8ML/HR. PT CURRENTLY ON 8ML/HR RESTING IN A CHAIR. DENIES PAIN STATES 0/10. SATS 94% ON ROOM AIR WHILE SLEEPING.
--- NOTE | 2020-06-28 11:41 | NUR ---
PT SLEEPING IN CHAIR. NASAL CANULA IN AT 2L OXYGEN SATS 98%. PT REQUESTED TO BE ALLOWED TO SLEEP IF ABLE HE STATED HE DID NOT SLEEP WELL LAST NIGHT.
--- NOTE | 2020-06-28 17:58 | NUR ---
SHIFT SUMMARY POD 2 SIGMOID COLECTOMY WITH NEW ILEOSTOMY AA0X4, STOMA PRODUCING FLATUS AND STOOL DURING SHIFT. 350ML LIQUID GREEN/BROWN STOOL. STOMA PINK AND BEEFY. ABDOMEN STILL BLOATED. PT HAS REPORTED NAUSEA FREQUENTLY DURING SHIFT, MEDICATED PER EMAR. PT REPORTS NAUSEA RESOLVED AT THIS TIME. PT EXTREMELY TIRED DURING SHIFT, PT STATES HE WAS ABLE TO GET SOME GOOD SLEEP DURING SHIFT AND FEELS MORE AWAKE AND ALERT AT THIS TIME. PT REPORTS PAIN MANAGED WITH EPIDURAL AT 8ML/HR AND TORODOL X1 FOR BREAKTHROUGH GAS PAIN. PT ABLE TO STAND AND TRANSFER TO CHAIR WELL, REPORTS RELIEF FROM GAS PAIN WITH STANDING. PT IS CURRENTLY SITTING UP IN BED TALKING TO AT BEDSIDE. 2L OXYGEN VIA NASAL CANULA WHILE ASLEEP, WAS ABLE TO TOLERATE ROOM AIR WELL WHEN AWAKE. RAZA PATENT AND DRAINING. PT IS TOLERATING ICE CHIPS AT THIS TIME FOR HIS OWN COMFORT. PLAN WILL BE TO CONTINUE TO MOBILIZE PATIENT AND ENCOURAGE DEEP BREATHING.
--- NOTE | 2020-06-28 21:52 | NUR ---
PT AGREES TO ALLOW STUDENT TO PARTICAIPATE IN CARE
--- NOTE | 2020-06-29 05:18 | NUR ---
SHIFT SUMMARY POD#3 THIS AM SIGMOID COLECTOMY WITH LOOP ILEOSTOMY. AAOX4. DISCOMFORT CONTROLLED WITH EPIDURAL AT CURRENT RATE OF 8ML/HR WITH BOLUS DOSES PER ORDERS + TORADOL X2. MILD NAUSEA THIS SHIFT, RESOLVED W/O ANTIEMETICS, NO EMESIS. ABD INCISION WITH JACOB, SCANT AMOUNT SS DRAINAGE OUTLINED ON 06/27 WITH NO INCREASE IN DRAINAGE SINCE. OSTOMY SECURE WITH 100cc LIQUID BROWN/SS OUT. DISTENDED ABD WITH NO CHANGE THIS SHIFT. EPIDURAL INFUSING WITH GOOD EFFECT ON PAIN CONTROL, DECREASED SENSATION TO T4-L1. PT RESTED T/O MOST OF NIGHT. REPOSITIONING SELF WELL IN BED. SHALLOW BREATHING CONTINUES ON 2L VIA NC, CONTINUE TO ENCOURAGE DEEP BREATHING + INCENTIVE SPIROMETRY USE. TOLERATED SIPS CLEARS T/O NIGHT. AT BEDSIDE. PT CURRENTLY RESTING IN BED WITH CALL LIGHT IN REACH.
--- NOTE | 2020-06-29 16:20 | NUR ---
NGT PLACED BY DR MARTINEZ
--- NOTE | 2020-06-29 19:59 | NUR ---
SHIFT SUMMARY PT WAS VERY EMOTIONAL TODAY. WAS MADE NPO EXCEPT ICE CHIPS THIS AM. WAS EATING VERY FEW ICE CHIPS T/O DAY. ABD BECAME MORE DISTENDED & NGT WAS PLACED BY DR MARTINEZ. AFTER NGT IN FOR APPROX 45 MINS, CALLED THIS RN TO BEDSIDE. PT WAS REPEATEDLY SAYING HE WAS GOING TO PULL IT OUT. EDUCATION & EMOTIONAL SUPPRT GIVEN. VERY HELPFUL & ATTENTIVE WELL. AGREED TO LEAVE NGT IN UNTIL TOMORROW AM W/ ASSIST OF HURRICANE SPRAY. C/O CONTINUALLY FEELING IF HE IS BEING GAGGED. OSTOMY CONTINUES TO HAVE OUTPUT BUT MINIMAL GAS. NGT HAS SCANT OUTPUT.
--- NOTE | 2020-06-29 23:30 | NUR ---
NGT: PT ASKING TO HAVE NGT REMOVED. PT W/FLAT AFFECT, REP SEVERE THROAT PAIN AND IRRITATION W/NO IMPROVEMENT W/CHLORASEPTIC SPRAY. PT REP NAUSEA R/T NGT, STARTS TO GAG WHEN TALKING. NO SIG CHANGES IN OUTPUT THIS SHIFT. DR MARTINEZ NOTIFIED, PT REQUEST AND NGT OUTPUT REVIEWED. NEW ORDER TO D/C NGT. TUBE D/C WNL, PT CICI WELL. PT REP INSTANT RELIEF AFTER TUBE REMOVED.
--- NOTE | 2020-06-30 05:42 | NUR ---
POD 4 S/P COLECTOMY + RESECTION W/ILEOSTOMY. PT VSS T/O NIGHT. PT PAIN AND AFFECT MUCH IMPROVED AFTER NGT REMOVED. NO CHANGES IN ABD DISTENTION; ABD DOES FEEL SOMEWHAT LESS FIRM THIS AM; PT AND REP IS NEAR BASELINE. OSTOMY PUT OUT APPX 450ML LIQ BROWN/GREEN STOOL; NO GAS OUTPUT NOTED. PT HAD MILD NAUSEA R/T NGT REMOVAL, NO EMESIS. PT REP PAIN CICI W/EPIDURAL; RATES PAIN 1-3/10, DENIES N/T. SEAL AND SX INTACT ON JACOB DRESSING, NO CHANGES IN DRNG. RAZA PATANT DRNG DARK YELLOW URINE. CLINIMIX CONT PER ORDERS. PT UP IN ROOM W/SBA; CICI WELL.
[2020-06-30 05:50] LABS: BASOPHILS ABSOLUTE AUTO 0.07 K/mm3 (0.00-0.23); BASOPHILS PERCENT AUTO 0 % (0-2); EOSINOPHILS ABSOLUTE AUTO 0.23 K/mm3 (0.00-0.68); EOSINOPHILS PERCENT AUTO 1 % (0-6); Hematocrit 35.3 % (37.0-53.0); Hemoglobin 11.8 g/dL (13.5-17.5); IMMATURE GRAN ABSOLUTE AUTO 0.36 K/mm3 (0.00-0.10); IMMATURE GRAN PERCENT AUTO 2 % (0-1); LYMPHOCYTES ABSOLUTE AUTO 1.79 K/mm3 (0.84-5.20); LYMPHOCYTES PERCENT AUTO 10 % (21-46); MONOCYTES PERCENT AUTO 7 % (4-13); Mean Corpuscular HGB 31.2 pg (26.0-34.0); Mean Corpuscular HGB Conc 33.4 g/dL (31.5-36.5); Mean Corpuscular Volume 93 fL (80-100); NEUTROPHILS ABSOLUTE AUTO 14.67 K/mm3 (1.96-9.15); NEUTROPHILS PERCENT AUTO 80 % (41-73); Platelet Count 551 K/mm3 (150-400); RDW Coefficient Variation 12.5 % (11.7-14.2); RDW Standard Deviation 42.5 fL (35.1-46.3); Red Blood Cell Count 3.78 M/mm3 (4.30-5.90); White Blood Cell Count 18.42 K/mm3 (4.00-11.30)
[2020-06-30 06:22] LABS: Anion Gap 4 mmol/L (6-16); Blood Urea Nitrogen 13 mg/dL (8-24); Bun/Creatinine Ratio 16.4 (12.0-20.0); CO2, Blood 30 mmol/L (21-32); Calcium, Blood 8.3 mg/dL (8.5-10.1); Chloride, Blood 103 mmol/L (98-108); Creatinine, Blood 0.79 mg/dL (0.60-1.20); Glomerular Filtration Rate >60 (60-); Glucose, Blood 128 mg/dL (70-99); Magnesium, Blood 1.8 mg/dL (1.6-2.4); Phosphorus, Blood 3.2 mg/dL (2.5-4.9); Potassium, Blood 3.5 mmol/L (3.5-5.5); Sodium, Blood 137 mmol/L (136-145); Triglycerides 232 mg/dL (30-160)
--- NOTE | 2020-06-30 19:38 | NUR ---
SHIFT SUMMARY EPIDURAL WAS REMOVED THIS AM & TRANSITION TO PO/IV MEDS WAS DIFFICULT. PAIN SPIKES & REQUIRES IV BREAKTHRU MEDS. ALTHOUGH PAINFUL, WAS ABLE TO GET UP TO SHOWER AFTER ENCOURAGMENT. DECLINED UP TO CHAIR POST SHOWER DUE TO PAIN. DISCUSSED PAIN MANAGEMENT W/ DR THIS AFTERNOON & MEDS ADJUSTED. PT VERY EXCITED W/ THAT. ABD SOFTER POST SHOWER & STANDING UP IN ROOM. MINIMAL OSTOMY OUTPUT & NO GAS NOTED.
[2020-07-01 04:32] LABS: BASOPHILS ABSOLUTE AUTO 0.08 K/mm3 (0.00-0.23); BASOPHILS PERCENT AUTO 1 % (0-2); EOSINOPHILS ABSOLUTE AUTO 0.35 K/mm3 (0.00-0.68); EOSINOPHILS PERCENT AUTO 2 % (0-6); Hematocrit 34.9 % (37.0-53.0); Hemoglobin 11.6 g/dL (13.5-17.5); IMMATURE GRAN ABSOLUTE AUTO 0.37 K/mm3 (0.00-0.10); IMMATURE GRAN PERCENT AUTO 2 % (0-1); LYMPHOCYTES ABSOLUTE AUTO 1.65 K/mm3 (0.84-5.20); LYMPHOCYTES PERCENT AUTO 11 % (21-46); MONOCYTES ABSOLUTE AUTO 1.39 K/mm3 (0.16-1.47); MONOCYTES PERCENT AUTO 9 % (4-13); Mean Corpuscular HGB 30.6 pg (26.0-34.0); Mean Corpuscular HGB Conc 33.2 g/dL (31.5-36.5); Mean Corpuscular Volume 92 fL (80-100); Mean Platelet Volume 10.3 fL (9.1-12.4); NEUTROPHILS ABSOLUTE AUTO 11.63 K/mm3 (1.96-9.15); NEUTROPHILS PERCENT AUTO 75 % (41-73); Platelet Count 521 K/mm3 (150-400); RDW Coefficient Variation 12.4 % (11.7-14.2); RDW Standard Deviation 41.4 fL (35.1-46.3); Red Blood Cell Count 3.79 M/mm3 (4.30-5.90); White Blood Cell Count 15.47 K/mm3 (4.00-11.30)
[2020-07-01 04:58] LABS: Anion Gap 2 mmol/L (6-16); Blood Urea Nitrogen 10 mg/dL (8-24); Bun/Creatinine Ratio 12.3 (12.0-20.0); CO2, Blood 35 mmol/L (21-32); Calcium, Blood 8.4 mg/dL (8.5-10.1); Chloride, Blood 101 mmol/L (98-108); Creatinine, Blood 0.81 mg/dL (0.60-1.20); Glomerular Filtration Rate >60 (60-); Glucose, Blood 134 mg/dL (70-99); Phosphorus, Blood 3.1 mg/dL (2.5-4.9); Potassium, Blood 3.7 mmol/L (3.5-5.5); Sodium, Blood 138 mmol/L (136-145)
--- NOTE | 2020-07-01 05:44 | NUR ---
POD 5 S/P ILEOSTOMY+RESECTION. PT VSS T/O NIGHT, 2LO2 IN PLACE WHILE PT SLEEPING; I/S USE REINFORCED WHEN AWAKE. ABD SLIGHTLY MORE FIRM THIS AM, OSTOMY PUT OUT APPX 275 ML LIQ STOOL, NO GAS OUTPUT YET; STOMA WNL. PT REP OCC MILD NAUSEA R/T PAIN MEDS, NO EMESIS; ZOFRAN GIVEN W/REP RELIEF. PAIN MGD PER EMAR, VALIUM GIVEN X2 FOR SLEEP AND SPASMS. PT NPO X FEW SIPS OF WATER W/MEDS; PPN CONT PER ORDERS. PT IS VOIDING URINE W/O DIFFICULTY. PT IN BED FOR MOST OF NIGHT, BENEFITS OF AMBUALTION REVIEWED, PT REP EAGER TO AMB TODAY. PRESENT IN ROOM, ASSISTING W/OSTOMY CARE.
--- NOTE | 2020-07-01 18:31 | NUR ---
SHIFT SUMMARY PT HAS BEEN UP MUCH MORE TODAY. AMBULATED IN HALLWAYS x 2, UP IN ROOM, UP TO BATHROOM. VERY SCANT, ALMOST NO LIQUID VIA OSTOMY BUT GAS HAS STARTED TO COME OUT VIA OSTOMY WELL BM VIA RECTUM. HAS STRUGGLED W/ NAUSEA T/O DAY BUT NO EMESIS. PAIN BETTER MANAGED.
--- NOTE | 2020-07-02 04:01 | NUR ---
SHIFT SUMMARY POD#6 SIGMOID COLECTOMY WITH LOOP ILEOSTOMY. AAOX4/ANXIOUS. DISCOMFORT DECREASED WITH 2 PERCOCET Q4H + 0.5MG IV DILAUDID X1 FOR BREAKTHROUGH. NAUSEA DECREASED WITH X1 12.5mg IV PHENERGAN, NO EMESIS. ABD INCISON WITH JACOB, SCANT AMOUNT SS DRAINAGE OUTLINED, NO INCREASE THIS SHIFT. ABD DISTENSION DECREASED FROM PREVIOUS SHIFT. OSTOMY SECURE WITH 100cc+ LIQUID BROWN/GREEN OUT. SIPS CLEARS THIS SHIFT. PT UP AMBULATING IN ROOM + REPOSITIONING SELF WELL IN BED. PT PLACED SELF ON O2 THIS PM FOR COMFORT, WILL ENCOURAGE DEEP BREATHING + INCENTIVE SPIROMETRY USE. CONTINUE TO ENCOURAGE AMBULATION TODAY + DIET TOLERATED PER ORDERS. NO ACUTE CHANGES OVER NIGHT. PT CURRENTLY RESTING IN BED WITH CALL LIGHT IN REACH.
[2020-07-02 04:56] LABS: Anion Gap 2 mmol/L (6-16); Blood Urea Nitrogen 9 mg/dL (8-24); Bun/Creatinine Ratio 11.2 (12.0-20.0); CO2, Blood 34 mmol/L (21-32); Calcium, Blood 8.8 mg/dL (8.5-10.1); Chloride, Blood 100 mmol/L (98-108); Creatinine, Blood 0.81 mg/dL (0.60-1.20); Glomerular Filtration Rate >60 (60-); Glucose, Blood 152 mg/dL (70-99); Magnesium, Blood 2.1 mg/dL (1.6-2.4); Phosphorus, Blood 2.9 mg/dL (2.5-4.9); Potassium, Blood 3.9 mmol/L (3.5-5.5); Sodium, Blood 136 mmol/L (136-145)
--- NOTE | 2020-07-02 15:08 | NUR ---
pt ambulating outside with . reports pain tolerable at this time.
--- NOTE | 2020-07-02 17:14 | NUR ---
SHIFT SUMMARY POD 6 SIGMOID COLECTOMY WITH ILEOSTOMY AA0X4, VSS. PT HAS TOLERATED SMALL AMOUNT OF PO, NAUSEA TOLERABLE DURING SHIFT WITH ZOFRAN X1. PT REPORTS FEELING APPETITE RETURNING THIS EVENING. PAIN MANAGED PER EMAR WITH 2 PERCOCET Q4. REQUIRED DILAUID X1 FOR BREAKTHROUGH PER EMAR. PT ABLE TO AMBULATE WELL, WALKED OUTSIDE WITH SPOUSE. REPORTED FEELING MUCH BETTER AFTER AMBULATING. PPN INFUSING DURING SHIFT. OSTOMY IS PINK AND PRODUCING LIQUID GREEN/BROWN STOOL. PASSING SOME FLATUS THROUGH BAG. PLAN IS TO CONTINUE TO MOBILIZE
--- NOTE | 2020-07-02 21:33 | NUR ---
PT AGREES TO ALLOW STUDENT TO PARTICIPATE IN CARE
--- NOTE | 2020-07-03 05:39 | NUR ---
SHIFT SUMMARY POD#7 SIGMOID COLECTOMY WITH LOOP ILEOSTOMY. AAOX4/ANXIOUS AT TIMES. DISCOMFORT DECREASED WITH 2 PERCOCET Q4H + X1 0.5MG IV DILAUDID FOR BREAKTHROUGH POST AMBULATION IN ROOM. ABD INCISION WITH ADH DRESSING C/D/I. OSTOMY SECURE WITH 100cc LIQUID BROWN + SMALL AMOUNT OF GAS. PT TOOK SIPS CLEARS + POPSICLE YESTARDAY EVENING. PT REPORTING GAS PER RECTUM THIS SHIFT. RESTED WELL T/O NIGHT. NO ACUTE CHANGES THIS SHIFT. CURRENTLY PT RESTING IN BED WITH CALL LIGHT IN REACH.
--- NOTE | 2020-07-03 14:43 | NUR ---
PRESCRIPTIONS PROVIDED TO PTS SPOUSE SO SHE CAN CLINICAL STUDIES SPECIALIST PRIOR TO DISCHARGE.
--- NOTE | 2020-07-03 15:39 | NUR ---
NOTICED INCREASED RESPIRATIONS AND MORE CREPITUS IN RIGHT UPPER CHEST THAN ON ADMIT. DR. GILL IN TO SEE PATIENT. ORDERS RECIEVED FOR ATIVAN AND FENTANYL
--- NOTE | 2020-07-03 15:40 | NUR ---
LAB IN TO DRAW BLOOD ON PATIENT. PT IS TALKING TO LAB. STATES SHE IS STILL JUST TIRED.
[2020-07-03] MEDS ORDERED: METO25 PO (15:46)
[2020-07-03] MEDS ORDERED: DIAZ5 PO (15:48)
[2020-07-03] MEDS ORDERED: Percocet 5-3251 EACH PO (15:49)
[2020-07-03] MEDS ORDERED: LOPE2C PO (15:51)
[2020-07-03] MEDS ORDERED: METAMUCIL POWD575 GM PO (15:52)
--- NOTE | 2020-07-03 18:31 | NUR ---
DISCHARGE PT LEFT VIA WHEELCHAIR. PT HAS BEEN AA0X4, VSS. TOLERATING REGULAR DIET TODAY. NO NAUSEA REPORTED. PT PAIN MANAGED PER EMAR, HE REPORTS IMPROVMENT TODAY. PT AMBULATING WELL DURING DAY. SUPPLIES SENT HOME WITH PATIENT. DISCHARGE INSTRUCTIONS GONE OVER WITH PATIENT AND SPOUSE, NO FURTHER QUESTIONS. IV REMOVED PRIOR TO DISCHARGE. PRESCRIPTIONS PICKED UP BY BEFORE DISCHARGE. OSTOMY PRODUCING MORE FORMED STOOL TODAY. PT HAS BEEN EMPTYING ON HIS OWN OSTOMY BAG.
== END 2020-07-03 18:07 | disposition home or self-care (01) | DRG 853 ==
LOC: SURS 15:13
PROVIDERS: ADMIT Surgery
PROC: 0D1B0Z4 Bypass Ileum to Cutaneous, Open Approach (ICD-10-PCS; principal; 2020-06-26 07:30)
PROC: 0DTN0ZZ Resection of Sigmoid Colon, Open Approach (ICD-10-PCS; 2020-06-26 07:30)
PROC: 0DB80ZZ Excision of Small Intestine, Open Approach (ICD-10-PCS; 2020-06-26 07:30)
DX: A41.9 Sepsis, unspecified organism (principal); K65.1 Peritoneal abscess; K57.20 Diverticulitis of large intestine with perforation and abscess without bleeding; K63.2 Fistula of intestine; I10 Essential (primary) hypertension; K42.9 Umbilical hernia without obstruction or gangrene; K21.9 Gastro-esophageal reflux disease without esophagitis; Z90.49 Acquired absence of other specified parts of digestive tract; Z88.5 Allergy status to narcotic agent
CPT/HCPCS: 0241U; 36415; 80048; 80053; 82947; 83735; 84100; 84478; 85025; 86850; 86900; 86901; 88307; 93005; 93010; A9270; J1100; J1170; J1650; J1885; J1956; J2001; J2250; J2405; J2550; J2704; J3010; J7040; J7120

== ENCOUNTER 2020-09-07 07:58 | Inpatient (IN) | payer BC ==
[~2020-09-07] VITALS: Ht 175.3 cm; Wt 77.1 kg
[~2020-09-07 07:58] MED LIST changes: +DIAZ5 PO; +IBUP200 PO; +LOPE2C PO; +METAMUCIL POWD575 GM PO; +METO25 PO; +Percocet 5-3251 EACH PO
--- NOTE | 2020-09-07 08:46 | NUR ---
PT AMBUALATES TO SDS c SYEADY GAIT. Patient confirms NPO status and agrees with scheduled surgery. History, Chart, Medications and Allergies reviewed before start of procedure. Lungs clear T/O to Auscultation. PT VOIDS.
--- NOTE | 2020-09-07 13:43 | NUR ---
POST OP ARRIVED FROM PACU VIA BED, AWAKE A&0X4, C/O INCISIONAL PAIN 6/10 AND NAUSEA, MEDICATED ORDERED, ABD BINDER IN PLACE, ICE CHIPS GIVEN, CONT. TO MONITOR FOR ANY CHANGES.
--- NOTE | 2020-09-07 16:10 | NUR ---
PT GIVEN DILAUDID IVP FOR PAIN CONTROL WITH INADEQUATE PAIN RELIEF, PT GIVEN A ONE TIME DOSE OF 0.5MG IV DILAUDID FOR PAIN 7/10, REPORTS PAIN LEVEL AT 4/10 AFTER MEDICATED, PT ABLE TO AMBULATE DOWN THE HALLS, TOLERATED WELL, STATES IV DILAUDID WORKS BUT NOT LASTING LONG ENOUGH FOR ADEQUATE PAIN RELIEF, PT WOULD LIKE TO TRY AUTOMATIC GLOVE TURNER AND FORMER PREVIOUSLY DISCUSSED WITH DR. MARTINEZ, DR. MARTINEZ NOTIFIED, AUTOMATIC GLOVE TURNER AND FORMER DILAUDID STARTED.
--- NOTE | 2020-09-07 19:26 | NUR ---
SUMMARY VSS, REPORTS PAIN IS TOLERABLE WITH DILAUDID MORTGAGE BRANCH MANAGER, CONT. TO HAVE NAUSEA, MANAGED WITH ZOFRAN, AMBULATED THE FELDMAN, TOLERATED WELL, ABD INCISION DSG CHANGED, GAUZE NOTED SATURATED W/ SS DRAINAGE, NEW STERILE GAUZE APPLIED OVER GAUZE PACKING, SECURED WITH MEFIX TAPE, VOIDING WITHOUT DIFFICULTY, NO ACUTE CHANGES THIS SHIFT.
[2020-09-08 04:24] LABS: BASOPHILS ABSOLUTE AUTO 0.03 K/mm3 (0.00-0.23); BASOPHILS PERCENT AUTO 0 % (0-2); EOSINOPHILS PERCENT AUTO 0 % (0-6); Hematocrit 36.4 % (37.0-53.0); Hemoglobin 12.5 g/dL (13.5-17.5); IMMATURE GRAN ABSOLUTE AUTO 0.12 K/mm3 (0.00-0.10); IMMATURE GRAN PERCENT AUTO 1 % (0-1); LYMPHOCYTES PERCENT AUTO 8 % (21-46); MONOCYTES ABSOLUTE AUTO 0.94 K/mm3 (0.16-1.47); MONOCYTES PERCENT AUTO 5 % (4-13); Mean Corpuscular HGB 30.3 pg (26.0-34.0); Mean Corpuscular HGB Conc 34.3 g/dL (31.5-36.5); Mean Corpuscular Volume 88 fL (80-100); Mean Platelet Volume 9.9 fL (9.1-12.4); NEUTROPHILS ABSOLUTE AUTO 16.48 K/mm3 (1.96-9.15); NEUTROPHILS PERCENT AUTO 86 % (41-73); Platelet Count 256 K/mm3 (150-400); RDW Coefficient Variation 14.2 % (11.7-14.2); RDW Standard Deviation 45.4 fL (35.1-46.3); Red Blood Cell Count 4.13 M/mm3 (4.30-5.90); White Blood Cell Count 19.17 K/mm3 (4.00-11.30)
[2020-09-08 04:46] LABS: Anion Gap 6 mmol/L (6-16); Blood Urea Nitrogen 20 mg/dL (8-24); CO2, Blood 26 mmol/L (21-32); Calcium, Blood 8.5 mg/dL (8.5-10.1); Chloride, Blood 109 mmol/L (98-108); Glomerular Filtration Rate >60 (60-); Glucose, Blood 126 mg/dL (70-99); Potassium, Blood 3.4 mmol/L (3.5-5.5); Sodium, Blood 141 mmol/L (136-145)
--- NOTE | 2020-09-08 06:28 | NUR ---
POD 1 S/P ILEOSTOMY TAKEDOWN. PT VSS T/O NIGHT. GAUZE OVER INCISION INTACT W/SMALL AMT SS DRNG; ABD BINDER IN PLACE. PT REP MILD NAUSEA T/O NIGHT, NO EMESIS, REP RELIEF W/ZOFRAN. BT REMAIN HYPO-ARE SOMEWHAT MORE ACTIVE THIS AM, NO FLATUS YET. PAIN MGD W/OCCUPATIONAL HYGIENIST W/REP RELIEF. PT UP INDEP IN ROOM, IS VOIDING URINE W/O DIFFICULTY. PLAN TO MOBILIZE PT CICI TODAY.
--- NOTE | 2020-09-08 18:35 | NUR ---
SHIFT SUMMARY PT TOLERATING CLEAR LQ's ALTHOUGH WAS TIMID IN TAKING IN CLEARS UNTIL STARTED PASSING GAS THIS AFTERNOON. NOW IS MORE EAGER TO TAKE IN PO FLUIDS. UP AMBULATING IN HALLWAYS & UP IN ROOM. TRANSITIONING FROM WET WASHER MACHINE TO PO PAIN MEDS. ABD SOFT. DRSG MIDDAY HAD SLIGHTL SHADOWING NOTED BUT NO BREAKTHRU DRAINAGE. ABD BINDER IN PLACE.
--- NOTE | 2020-09-08 22:53 | NUR ---
PT REP PAIN CICI AT THIS TIME. IV AND FOOD SAFETY OFFICER DISCONNECTED PER PT REQ. PT DECLINES NEED FOR PO PAIN MED AT THIS TIME. PRN PAIN MED ORDERS REV W/PT. PT TO CALL WHEN READY FOR PAIN MEDS.
--- NOTE | 2020-09-09 05:22 | NUR ---
POD 2 S/P ILEOSTOMY REVERSAL. PT VSS, NO SIG CHANGES TO SHADOWING ON DRESSING; ABD BINDER IN PLACE. PT CICI CL PO, NO N/V. ABD SOFT, BT ACTIVE, PT REP +FLATUS, HAD 2 UNFORMED BM THIS SHIFT. LIGHT RAIL OPERATOR DISCONNECTED BEFORE BED, PAIN MGD W/PO PAIN MEDS W/REP RELIEF. PT AMB INDEP IN HALLS, CICI WELL.
[2020-09-09] MEDS ORDERED: Acetaminophen650 M1 PO (11:42)
[2020-09-09] MEDS ORDERED: Percocet 5-3251 EACH PO (11:57)
--- NOTE | 2020-09-09 12:45 | NUR ---
DISCHARGE TOLERATED FULL LQ's x 2 MEALS. AMBULATING EASILY IN HALLWAYS & UP IN ROOM. EATING, DRINKING, VOIDING, PASSING GAS, & HAVING BM's. SCRIPT, DRSGS SUPPLIES, & INSTRUCTIONS GIVEN. DECLINES W/C OUT. AMBULATES OUT W/ SPOUSE AT SIDE.
== END 2020-09-09 13:21 | disposition home or self-care (01) | DRG 331 ==
LOC: SURS 07:58
PROVIDERS: ADMIT Surgery
PROC: 0DQB0ZZ Repair Ileum, Open Approach (ICD-10-PCS; principal; 2020-09-07 09:30)
DX: Z43.2 Encounter for attention to ileostomy (principal); I10 Essential (primary) hypertension; Z90.49 Acquired absence of other specified parts of digestive tract; Z90.89 Acquired absence of other organs; Z98.890 Other specified postprocedural states; Z88.5 Allergy status to narcotic agent; Z79.899 Other long term (current) drug therapy
CPT/HCPCS: 36415; 74270; 80048; 82947; 85025; 85027; 88304; 94760; A9270; J0694; J1170; J1650; J1885; J2250; J2370; J2405; J2710; J2765; J3010; J7120

== ENCOUNTER 2021-02-11 08:12 | Day surgery (SDC) | payer BC ==
[~2021-02-11] VITALS: Ht 175.3 cm; Wt 77.9 kg
[~2021-02-11 08:12] MED LIST changes: +Acetaminophen650 M1 PO
--- NOTE | 2021-02-11 09:01 | NUR ---
History, Chart, Medications and Allergies reviewed before start of procedure. Lungs clear T/O to Auscultation. Patient confirms NPO status and agrees with scheduled surgery. Pre-Op teaching done. Pt verbalizes understanding. Patient states colon prep results clear. Patient States Post-Procedure ride home has been arranged.
--- NOTE | 2021-02-11 10:03 | NUR ---
02/11/21 Kendra3 Marilee Dominguez History, Chart, Medications and Allergies reviewed before start of procedure. Patient confirms NPO status and agrees with scheduled surgery. 3-LEAD EKG REVIEWED WITH PHYSICIAN PRIOR TO START OF PROCEDURE. MONITOR INTACT WITH CONTINUOUS PULSE OXIMETRY AND INTERMITTENT BP. PATIENT DETERMINED TO BE ASA APPROPRIATE FOR PROPOFOL SEDATION PRIOR TO START OF PROCEDURE BY
--- NOTE | 2021-02-11 10:43 | NUR ---
Patient up to Ambulate independently. Gait steady. Discharge instructions reviewed with patient. Patient verbalizes understanding. Copy given to patient to take home. Patient States Post-Procedure ride home has been arranged. Discharged via wheelchair to private car for ride home.
== END 2021-02-11 10:45 | disposition home or self-care (01) ==
LOC: ORSCMMR 08:12 → ORD 09:30 → ORSCMMR 09:30
PROVIDERS: Surgery
PROC: 0DJD8ZZ Inspection of Lower Intestinal Tract, Via Natural or Artificial Opening Endoscopic (ICD-10-PCS; principal; 2021-02-11 09:30)
DX: Z12.11 Encounter for screening for malignant neoplasm of colon (principal); Z93.2 Ileostomy status; Z79.899 Other long term (current) drug therapy
CPT/HCPCS: J2704; J7120

== ENCOUNTER 2021-06-30 22:43 | Emergency (ER) | payer BC ==
[~2021-06-30] VITALS: Ht 172.7 cm; Wt 81.7 kg
[2021-07-01 01:23] LABS: BASOPHILS ABSOLUTE AUTO 0.04 K/mm3 (0.00-0.23); BASOPHILS PERCENT AUTO 0 % (0-2); EOSINOPHILS ABSOLUTE AUTO 0.07 K/mm3 (0.00-0.68); EOSINOPHILS PERCENT AUTO 0 % (0-6); Hemoglobin 15.3 g/dL (13.5-17.5); IMMATURE GRAN ABSOLUTE AUTO 0.07 K/mm3 (0.00-0.10); IMMATURE GRAN PERCENT AUTO 0 % (0-1); LYMPHOCYTES ABSOLUTE AUTO 1.61 K/mm3 (0.84-5.20); LYMPHOCYTES PERCENT AUTO 9 % (21-46); MONOCYTES ABSOLUTE AUTO 1.44 K/mm3 (0.16-1.47); MONOCYTES PERCENT AUTO 8 % (4-13); Mean Corpuscular HGB 31.6 pg (26.0-34.0); Mean Corpuscular Volume 93 fL (80-100); Mean Platelet Volume 10.3 fL (9.1-12.4); NEUTROPHILS ABSOLUTE AUTO 13.91 K/mm3 (1.96-9.15); NEUTROPHILS PERCENT AUTO 81 % (41-73); Platelet Count 229 K/mm3 (150-400); RDW Coefficient Variation 12.9 % (11.7-14.2); RDW Standard Deviation 44.3 fL (35.1-46.3); Red Blood Cell Count 4.84 M/mm3 (4.30-5.90); White Blood Cell Count 17.14 K/mm3 (4.00-11.30)
[2021-07-01 01:42] LABS: Alanine Aminotransfer (ALT/SGP 21 U/L (12-78); Albumin, Blood 3.7 g/dL (3.4-5.0); Alk Phos 95 U/L (50-136); Anion Gap 3 mmol/L (6-16); Aspartate Aminotrans (AST/SGOT 16 U/L (12-37); Bilirubin, Total 0.6 mg/dL (0.1-1.0); Blood Urea Nitrogen 17 mg/dL (8-24); Bun/Creatinine Ratio 18.3 (12.0-20.0); CO2, Blood 32 mmol/L (21-32); Calcium, Blood 9.4 mg/dL (8.5-10.1); Chloride, Blood 106 mmol/L (98-108); Creatinine, Blood 0.93 mg/dL (0.60-1.20); Globulin, Blood 3.6 g/dL (2.2-4.0); Glomerular Filtration Rate >60 (60-); Glucose, Blood 131 mg/dL (70-99); Potassium, Blood 4.1 mmol/L (3.5-5.5); Sodium, Blood 141 mmol/L (136-145); Total Protein, Blood 7.3 g/dL (6.4-8.2)
[2021-07-01 06:44] LABS: Source, Urine Clean Catch
[2021-07-01 06:52] LABS: Appearance, Urine Clear (Clear); Bilirubin, Urine Neg (Neg); Blood, Urine 1+ (Neg); Color, Urine Yellow (P-Yellow); Glucose Qualitative, Urine Neg (Neg); Ketones, Urine Neg (Neg); Leukocyte Esterase, Urine Neg (Neg); Nitrite, Urine Neg (Neg); Protein, Urine 1+ (Neg); Urobilinogen, Urine 1+ (Normal)
[2021-07-01 07:24] LABS: Bacteria Rare /hpf; Red Blood Cells, Urine 0-2 /hpf (0-2); Squamous Epithelial Cells Rare /hpf (Few); White Blood Cells, Urine 0-2 /hpf (0-5)
[2021-07-01] MEDS ORDERED: FAMO20 PO (07:34)
[2021-07-01] MEDS ORDERED: DICY20 PO (07:34)
[2021-07-01] MEDS ORDERED: OXAYDO5 M1 PO (07:34)
== END 2021-07-01 07:55 | disposition home or self-care (01) ==
LOC: ER 22:43
PROVIDERS: Physician Assistant; Student in an Organized Health Care Education/Training Program
DX: R07.89 Other chest pain (principal); D72.829 Elevated white blood cell count, unspecified; R10.9 Unspecified abdominal pain; M54.6 Pain in thoracic spine; I10 Essential (primary) hypertension; K21.9 Gastro-esophageal reflux disease without esophagitis; Z88.5 Allergy status to narcotic agent; Z79.899 Other long term (current) drug therapy
CPT/HCPCS: 36415; 71045; 74177; 80053; 81001; 83690; 84484; 85025; A9270; J1170; J1885; J2270; J2405; Q9967